=== PATIENT | male | born 1965 | race African-American/Black ===

== ENCOUNTER 2019-05-12 22:10 | Emergency (ER) | payer MEDICARE, MEDICAID ==
[~2019-05-12] VITALS: Ht 185.4 cm; Wt 94.0 kg
[~2019-05-12 22:10] MED LIST: ABAC1TAB3 PO; AMIT25TA9 PO; BENA10TA12 PO; DARU800T PO; PRAV10TA35 PO; RITO100T PO; VIRE PO
[2019-05-13] MEDS ORDERED: HYDROCODONE/ACETAMINOPHEN 5/325MG TABLET PO ONE (00:45)
[2019-05-13 02:01] VITALS: BP 119/87
== END 2019-05-13 02:03 | disposition home or self-care (01) ==
LOC: ER 22:10
DX: S90.02XA Contusion of left ankle, initial encounter (principal); S90.01XA Contusion of right ankle, initial encounter; I10 Essential (primary) hypertension; F12.10 Cannabis abuse, uncomplicated; W50.2XXA Accidental twist by another person, initial encounter; Y93.89 Activity, other specified; Y92.89 Other specified places as the place of occurrence of the external cause; Y99.8 Other external cause status; Z79.899 Other long term (current) drug therapy
CPT/HCPCS: 73610; 73630; 99283